=== PATIENT | male | born 1935 | race Caucasian/White ===

== ENCOUNTER 2016-11-06 06:42 | Day surgery (SDC) | payer OTHER ==
[2016-10-26 12:51] VITALS: BMI 28.0
--- NOTE | 2016-10-26 13:24 | PAT Medication Instructions ---
Service Date Oct 26, 2016. Current Home Medication List Apixaban (Eliquis), 10 MG PO BID Coenzyme Q10 (Ubidecarenone) (Coq10), 200 MG PO QPM Metoprolol Succ (Toprol Xl) (Toprol-Xl), 50 MG PO QPM Multivitamin (Multivitamin), 1 TAB PO QAM Medication Instructions For Your Scheduled Surgery Apixaban (Eliquis), 10 MG PO BID (hold 3 days prior to surgery per surgeon and cardio instructions) - Hold the following medications starting today 10/26/16: Coenzyme Q10 (Ubidecarenone) (Coq10), 200 MG PO QPM - Hold the following medications the morning of surgery: Multivitamin (Multivitamin), 1 TAB PO QAM - Take the following medications as scheduled the night before surgery: Metoprolol Succ (Toprol Xl) (Toprol-Xl), 50 MG PO QPM If you have any questions please call us at [phone] or [phone] ( [place]) or [phone]
--- NOTE | 2016-10-26 14:10 | DIAGNOSTIC IMAGING REPORT ---
CHEST PREADMISSION(PA/LAT) CLINICAL HISTORY: PAT COMPARISON STUDY: No previous studies for comparison. FINDINGS: The bones soft tissues and hemidiaphragms are normal. The cardiomediastinal silhouette is normal. The lungs are clear. The pulmonary vasculature is normal. IMPRESSION: Negative chest. Electronically signed by: Dennis Duncan M.D. 10/26/2016 2:09 PM Dictated Date/Time: 10/26/2016 2:09 PM
[2016-10-26 14:38] LABS: BASO % 0.4 %; BASO ABS # 0.02 K/uL (0-0.2); COMPLETE YES; EOS % 0.9 %; HEMATOCRIT 42.1 % (42-52); IG% 0.2 %; LYMPH % 30.3 %; LYMPH ABS # 1.37 K/uL (1.2-3.4); MEAN CELL VOLUME 96.6 fL (80-100); MEAN CORPUSCULAR HEMOGLOBIN 33.3 pg (25-34); MEAN CORPUSCULAR HGB CONC 34.4 g/dl (32-36); MEAN PLATELET VOLUME 11.3 fL (7.4-10.4); MONO % 11.1 %; NEUT % 57.1 %; PLATELET COUNT 186 K/uL (130-400); RED BLOOD COUNT 4.36 M/uL (4.7-6.1); WHITE BLOOD COUNT 4.52 K/uL (4.8-10.8)
[2016-10-26 14:47] LABS: URINE APPEARANCE CLEAR (CLEAR); URINE BILIRUBIN NEG (NEG); URINE COLOR YELLOW; URINE EPITHELIAL CELL AUTO >30 /lpf (0-5); URINE NITRITE NEG (NEG); URINE SPECIFIC GRAVITY 1.008 (1.000-1.030); UROBILINOGEN NEG (NEG)
[2016-10-26 14:49] LABS: MANUAL MICROSCOPIC REQUIRED? NO; REVIEW REQ? NO
[2016-10-26 14:58] LABS: BUN/CREATININE RATIO 20.3 (10-20); POTASSIUM 3.7 mmol/L (3.5-5.1)
[~2016-11-06] VITALS: Ht 193 cm; Wt 108.8 kg
[~2016-11-06 06:42] MED LIST: APIX1TAB3 PO; CIPROFLOXACIN / D5W 400 MG IV SCH; COEN1CAP7 PO; LACTATED RINGER'S 1000ML 1,000 ML IV SCH; METO50TA7 PO; MULT-506 PO
[2016-11-06 06:57] VITALS: Ht 193 cm; Wt 108.8 kg
[2016-11-06 07:01] VITALS: BP 124/84; PULSE 84; TEMP 35.8; O2SAT 97
[2016-11-06] MEDS ORDERED: TAMS0.4C38 PO (07:01)
[2016-11-06] MEDS ORDERED: ONDANSETRON INJ 2 MG/ML 2 ML VIAL ONE (07:49)
[2016-11-06] MEDS ORDERED: LIDOCAINE HCL 2% 2 ML VIAL (20MG/ML) ONE (07:49)
[2016-11-06] MEDS ORDERED: DEXAMETHASONE SOD INJ 4 MG/ML VIAL ONE (07:49)
[2016-11-06] MEDS ORDERED: PROPOFOL IV EMULSION 10 MG/ML 20 ML VIAL IV ONE (07:49)
[2016-11-06] MEDS ORDERED: MIDAZOLAM HCL 1 MG/ML 2ML VIAL ONE (07:50)
[2016-11-06] MEDS ORDERED: FENTANYL CITRATE INJ 50 MCG/1 ML 2 ML VIAL ONE (07:50)
--- NOTE | 2016-11-06 08:22 | History & Physical Bridge Note ---
H&P Re-Evaluation Bridge Note: I have examined the patient, reviewed the History & Physical and in the interval since the performance of the History & Physical I have noted the following changes of clinical significance: No changes noted
[2016-11-06] MEDS ORDERED: ATROPINE SULFATE 0.1 MG/ML 5ML SYR IV PRN (08:45)
[2016-11-06] MEDS ORDERED: ONDANSETRON INJ 2 MG/ML 2 ML VIAL IV PRN (08:45)
[2016-11-06] MEDS ORDERED: LABETALOL HCL IV 5 MG/ML 20ML IV PRN (08:45)
[2016-11-06] MEDS ORDERED: EpHEDrine SULFATE INJ 50 MG/ML AMP IV PRN (08:45)
[2016-11-06] MEDS ORDERED: MEPERIDINE HCL 25 MG/ML CARP IV PRN (08:45)
[2016-11-06] MEDS ORDERED: HYDROmorphone INJ 1 MG/ML SYR IV PRN (08:45)
[2016-11-06] MEDS ORDERED: FENTANYL CITRATE INJ 50 MCG/1 ML 2 ML VIAL IV PRN (08:45)
[2016-11-06] MEDS ORDERED: PHENYLEPHRINE HCL INJ 10 MG/ML VIAL ONE (08:55)
[2016-11-06] MEDS ORDERED: SODIUM CHLORIDE 0.9% 1000ML 1,000 ML IV SCH (10:18)
[2016-11-06] MEDS ORDERED: PHENAZOPYRIDINE HCL 200 MG TAB PO STA (10:18)
--- NOTE | 2016-11-06 10:18 | [facility] Post Operative Brief Note ---
Immediate Operative Summary Operative Date Nov 06, 2016. Pre-Operative Diagnosis Bladder Stone; BPH Post-Operative Diagnosis Bladder Stone;BPH Procedure(s) Performed Cystolithopaxy; holmium laser incision of bladder neck Surgeon Dr. Lara Business Risk Analyst Surgeon(s) none Estimated Blood Loss 0cc Findings Very large bladder stone (single) High bladder neck, no significant intravesical median lobe of the prostate. Specimens A: Bladder Stones Drains 18F coude catheter Anesthesia gen Complication(s) None Disposition Recovery Room / PACU (stable)
[2016-11-06] MEDS ORDERED: HYDR-5688 PO (10:20)
[2016-11-06] MEDS ORDERED: CIPR-255 PO (10:20)
[2016-11-06] MEDS ORDERED: PHEN-876 PO (10:20)
--- NOTE | 2016-11-06 10:25 | Discharge Instructions ---
Discharge Instructions Date of Service Nov 06, 2016. Admission Reason for Admission: Bladder Stones Discharge Discharge Diagnosis / Problem: Treat bladder stones Discharge Goals Goal(s): Decrease discomfort, Improve function, Increase independence, Improve disease control Activity Recommendations Activity Limitations: resume your previous activity Lifting Limitations: none Exercise/Sports Limitations: none May Resume Sexual Activity: when tolerated Shower/Bathe: no limitations Driving or Machine Use: no limitations . Instructions / Follow-Up Instructions / Follow-Up Please come to Dr. Lara's office tomorrow at 9AM to have your catheter removed. Discharge Diet Recommended Diet: Regular Diet Procedures Procedures Performed: Cystolithopaxy; holmium laser incision of bladder neck Pending Studies Studies pending at discharge: no Medical Emergencies . Who to Call and When: Medical Emergencies: If at any time you feel your situation is an emergency, please call 911 immediately. . Non-Emergent Contact Non-Emergency issues call your: Urologist Call Non-Emergent contact if: you have a fever, temperature is above 101.5, your pain is not controlled, your pain is worsening . . "Provider Documentation" section prepared by Imer Suarez. VTE Core Measure Inpt VTE Proph given/why not?: Other Anticoagulation (Please resume your anticoagulation in 48 hours as long as your urine is clear/pink.) [place] Drug Monitoring Program Search Results: patient reviewed within database, no issues identified
[2016-11-06] MEDS ORDERED: PHENAZOPYRIDINE HCL 200 MG TAB PO PRN (10:30)
[2016-11-06] MEDS ORDERED: ACETAMINOPHEN 325 MG TAB PO PRN (10:30)
[2016-11-06] MEDS ORDERED: OXYCODONE/ACETAMINOPHEN 5-325 TAB PO PRN ×2 (10:30)
--- NOTE | 2016-11-06 10:57 | Anesthesiology Progress Note ---
Anesthesia Post Op Note Date & Time Nov 06, 2016 at 10:58 Vital Signs Pain Intensity: 0 Vital Signs Past 12 Hours Date Time Temp Pulse Resp B/P Pulse Ox O2 Delivery O2 Flow Rate FiO2 11/06/16 10:50 83 16 125/86 96 Nasal Cannula 4 11/06/16 10:40 84 16 130/75 96 Nasal Cannula 4 11/06/16 10:30 70 16 118/94 95 Mask 5 11/06/16 10:23 36.1 87 16 123/73 100 Mask 10 11/06/16 07:01 35.8 84 18 124/84 97 Room Air Notes Mental Status: alert / awake / arousable, participated in evaluation Pt Amnestic to Procedure: Yes Nausea / Vomiting: adequately controlled Pain: adequately controlled Airway Patency, RR, SpO2: stable & adequate BP & HR: stable & adequate Hydration State: stable & adequate Anesthetic Complications: no major complications apparent
[2016-11-06 11:05] VITALS: BP 127/93; PULSE 87; TEMP 36.4; O2SAT 99
[2016-11-06 11:35] VITALS: BP 140/72; PULSE 83; TEMP 36.4; O2SAT 100
[2016-11-06 12:05] VITALS: BP 130/81; PULSE 83; TEMP 36.3; O2SAT 97
--- NOTE | 2016-11-06 14:45 | OPERATIVE REPORT ---
DATE OF OPERATION: 11/06/2016 PREOPERATIVE DIAGNOSIS: Bladder calculus and benign prostatic hypertrophy. POSTOPERATIVE DIAGNOSIS: Bladder calculus and benign prostatic hypertrophy. PROCEDURES PERFORMED: Cystoscopy, laser litholapaxy and holmium laser incision of bladder neck. ANESTHESIA: General. ESTIMATED BLOOD LOSS: Zero. URINE OUTPUT: Not recorded. SPECIMENS: Bladder stone for routine chemical analysis. DRAINS: An 18[place]izen [place] coude Bethea catheter. DESCRIPTION OF THE PROCEDURE: Jarad Vásquez was identified in the preoperative holding area. Appropriate informed consents were reviewed and completed and the patient was transported to the operating suite. Upon arrival, he received appropriate preoperative antibiotics in the form of ciprofloxacin and adequate general anesthesia. He was placed in the dorsal lithotomy position where he was sterilely prepped and draped. I passed a 22 Citizen [place] cystoscope with 30-degree lens per urethra. Inspection revealed no evidence of bulbar urethral stricture. He had moderately enlarged prostate with high bladder neck and no significant intravesical median lobe. In the bladder itself there was a very large calculus was easily visualized and there were no other smaller calculi seen. This was yellow, brown in color. There were no tumors appreciated throughout the bladder. After this inspection, I passed a 1000 micron laser fiber and I began laser fragmentation of the stone. I sequentially worked my way around the entire stone until it was all fragmented into pieces small enough to irrigate out of the bladder. I irrigated these out through the scope without difficulty. After confirming that there were no large retained fragments and that the vast majority of all the dust and debris had been irrigated out, I turned my attention to the bladder neck. It appears that he has relatively high bladder neck and this likely contributed to the stasis and secondary formation of the stone. Using the 1000 micron laser, I performed an incision in the bladder neck at 5 o'clock and 7 o'clock. I identified the ureteral orifices and back to the bladder neck with care to avoid encroachment upon these, I incised in line from that orifice back towards the verumontanum, which dropped the bladder neck moderately, I made it somewhat easier to pass the scope into the bladder. There was excellent hemostasis throughout this. I then left the bladder full through the scope placed an 18[place] coude catheter without difficulty. Bladder fragments were collected and passed off the table for chemical analysis. There were no complications. I attest to the content of the Intraoperative Record and any orders documented therein. Any exceptio ns are noted below.
== END 2016-11-06 12:23 | disposition home or self-care (01) ==
LOC: C.ACU 06:42
PROVIDERS: ATTEND Urology
DX: N21.0 Calculus in bladder (principal); N40.0 Benign prostatic hyperplasia without lower urinary tract symptoms; I48.1 Persistent atrial fibrillation; E78.00 Pure hypercholesterolemia, unspecified; I10 Essential (primary) hypertension; Z82.49 Family history of ischemic heart disease and other diseases of the circulatory system; Z79.899 Other long term (current) drug therapy